=== PATIENT | male | born 1985 | race Caucasian/White ===

== ENCOUNTER 2022-06-23 17:55 | Emergency (ER) | payer SELFPAY ==
[~2022-06-23] VITALS: Ht 160 cm; Wt 81.6 kg
[2022-06-23 19:14] LABS: BASO % 0.3 % (0.0-1.0); EOS % 0.3 % (1.0-4.0); HEMATOCRIT 46.9 % (42.0-52.0); LYMPH # 1.8 10*3/uL (1.3-4.4); LYMPH % 12.9 % (27.0-41.0); MEAN CELL VOLUME 88.2 fl (80.0-94.0); MEAN CORPUSCULAR HGB 29.9 pg (27.0-31.0); MEAN CORPUSCULAR HGB CONC 33.9 g/dl (33.0-37.0); MEAN PLATELET VOLUME 10.4 fl (9.6-12.3); MONO # 0.8 10*3/uL (0.1-1.0); MONO % 5.6 % (3.0-9.0); NEUT # 11.5 10*3/uL (2.3-7.9); NEUT % 80.5 % (47.0-73.0); PLATELET COUNT AUTOMATED 269 10*3/uL (130-400); RED BLOOD COUNT 5.32 10*6/uL (4.50-5.90); RED CELL DISTRI WIDTH 12.4 % (0-14.5); WHITE BLOOD COUNT 14.3 10*3/uL (4.8-10.8)
[2022-06-23 19:30] LABS: ALKALINE PHOSPHATASE 71 U/L (46-116); CHLORIDE 102 mmol/L (98-107); CREATININE 1.02 mg/dL (0.70-1.30); SGPT/ALT 34 U/L (10-49); SODIUM 138 mmol/L (136-145)
[2022-06-23 19:31] LABS: TOTAL PROTEIN 7.6 gm/dL (6.0-8.0)
[2022-06-23 20:19] LABS: BUN 10 mg/dl (9-23); POTASSIUM 4.9 mmol/L (3.4-5.1)
[2022-06-23] MEDS ORDERED: Percocet 325 MG1 TAB PO (20:52)
[2022-06-23] MEDS ORDERED: METHOCARBAMOL500 M1 PO (20:52)
[2022-06-23] MEDS ORDERED: NAPROSYN500 MG PO (20:52)
== END 2022-06-23 22:09 | disposition home or self-care (01) ==
LOC: ED 17:55
PROVIDERS: Physician Assistant
DX: S22.42XA Multiple fractures of ribs, left side, initial encounter for closed fracture (principal); S22.051A Stable burst fracture of T5-T6 vertebra, initial encounter for closed fracture; S22.061A Stable burst fracture of T7-T8 vertebra, initial encounter for closed fracture; S22.071A Stable burst fracture of T9-T10 vertebra, initial encounter for closed fracture; Z88.8 Allergy status to other drugs, medicaments and biological substances; V86.59XA Driver of other special all-terrain or other off-road motor vehicle injured in nontraffic accident, initial encounter; Y93.89 Activity, other specified; Y92.89 Other specified places as the place of occurrence of the external cause; Y99.8 Other external cause status